=== PATIENT | male | born 1955 | race Caucasian/White ===

== ENCOUNTER → 2016-08-28 | Outpatient (CLI) | payer MEDICARE, MEDICAID ==
[~2016-08-28] MED LIST: ASPIR 8181 MG PO; CENTRUM SILVER1 EAC1 PO; DELTASONE5 MG PO; DEPAKOTE SPRIN125 M1 PO; DULCOLAX10 MG R; EX-LAX15 MG PO; HUMIBID LA (MU600 MG PO; IPRAT-ALBUT 0.5-3 ML INH; LEVAQUIN750 MG PO; MILK OF MA400 MG/5 M PO; MYLANTA (MAG-AL30 ML PO; NIACIN500 M3 PO; NYSTATIN1 EAC1 TOP; PRILOSEC20 MG PO; QVAR8.7 G1 INH; SENOKOT S (S1 TABLET PO; TOPROL XL 5050 MG PO; TYLENOL325 MG PO; VALIUM5 MG PO; ZOLOFT100 MG PO; ZYPREXA10 MG PO
[2016-08-28 11:05] LABS: BILIRUBIN URINE NEGATIVE (NEGATIVE); BLOOD URINE NEGATIVE /UL (NEGATIVE); COLOR URINE YELLOW (YELLOW); GLUCOSE URINE NEGATIVE (NEGATIVE); KETONE URINE NEGATIVE (NEGATIVE); LEUKOCYTES URINE NEGATIVE /UL (NEGATIVE); NITRITE URINE NEGATIVE (NEGATIVE); PROTEIN URINE NEGATIVE (NEGATIVE); SPEC GRAVITY URINE 1.015 (1.003-1.035); TURBIDITY URINE CLEAR (CLEAR); UROBILINOGEN URINE NORMAL (NORMAL)
== END | disposition disaster alternative care site (69) ==
PROVIDERS: Family Medicine
DX: N39.0 Urinary tract infection, site not specified (principal)